=== PATIENT | female | born 1935 | race Caucasian/White ===

== ENCOUNTER 2023-12-06 17:35 | Inpatient (IN) | payer MEDICARE, OTHER ==
[~2023-12-06] VITALS: Ht 167.6 cm; Wt 58.5 kg
[2023-12-06] MEDS ORDERED: MAGNESIUM HYDROXIDE 30 ML UDC PO PRN (18:30)
[2023-12-06] MEDS ORDERED: ZOLPIDEM TARTRATE 5 MG TABLET PO PRN (18:30)
[2023-12-06] MEDS ORDERED: ACETAMINOPHEN 325 MG TABLET PO PRN (18:30)
[2023-12-06 18:34] VITALS: BP 128/61; TEMP 97.7; O2SAT 98
[2023-12-06 20:00] VITALS: BP 133/75; TEMP 97.9; O2SAT 97
[2023-12-06] MEDS: BLOOD SUGAR DIAGNOSTIC 1 EACH STRIP IN ONE (20:06)
[2023-12-07 07:47] LABS: ALANINE AMINOTRANSFERASE 6 U/L (12-78); ALBUMIN 3.3 g/dL (3.4-5.0); ALKALINE PHOSPHATASE 122 U/L (46-116); ASPARTATE AMINOTRANSFERASE 7 U/L (15-37); BILIRUBIN,TOTAL 0.5 mg/dL (0.2-1.0); CALCIUM, SERUM 10.2 mg/dL (8.5-10.1); CARBON DIOXIDE 24 mmol/L (21-32); CHLORIDE 105 mmol/L (98-107); CREATININE 0.7 mg/dL (0.6-1.3); GLUCOSE 91 mg/dL (74-106); POTASSIUM 4.3 mmol/L (3.5-5.1); SODIUM SERUM 139 mmol/L (136-145); TOTAL PROTEIN, SERUM 7.8 g/dL (6.4-8.2); UREA NITROGEN, BLOOD 18 mg/dL (7-18)
[2023-12-07 08:00] VITALS: BP 151/61; TEMP 97.7; O2SAT 99
[2023-12-07 08:32] LABS: CHOLESTEROL 164 mg/dL (<200); HDL CHOLESTEROL 62 mg/dL (40-60); LDL 85 mg/dL (0-99); TRIGLYCERIDES 79 mg/dL (30-150)
[2023-12-07] MEDS: ESCITALOPRAM OXALATE (10 MG) 10 MG TABLET PO SCH (11:50)
[2023-12-07 16:04] VITALS: BP 107/57; TEMP 97.8; O2SAT 94
[2023-12-07 21:19] VITALS: BP 115/58; TEMP 97.9; O2SAT 97
[2023-12-07] MEDS: QUETIAPINE FUMARATE 25 MG TABLET PO SCH (21:33)
[2023-12-08 08:00] VITALS: BP 132/74; TEMP 97.9; O2SAT 93
[2023-12-08 13:47] LABS: THYROID STIMULATING HORMONE 3.83 uIU/mL (0.358-3.74)
[2023-12-08 16:00] VITALS: BP 119/66; TEMP 98.1; O2SAT 96
[2023-12-08 20:52] VITALS: BP 119/65; TEMP 98.1; O2SAT 96
[2023-12-09 07:10] LABS: FOLIC ACID 6.8 ng/mL (>3.0)
[2023-12-09 08:00] VITALS: BP 114/64; TEMP 98.9; O2SAT 92
[2023-12-09] MEDS: LORAZEPAM 0.5 MG TABLET PO PRN (10:48)
[2023-12-09 16:00] VITALS: BP 165/78; TEMP 98.4; O2SAT 98
[2023-12-09 20:35] VITALS: BP 109/68; TEMP 98.2; O2SAT 91
[2023-12-10 08:00] VITALS: BP 112/65; TEMP 97.8; O2SAT 96
[2023-12-10] MEDS: CYANOCOBALAMIN 1,000 MCG/ML VIAL IM SCH (08:20)
[2023-12-10 16:00] VITALS: BP 124/76; TEMP 98.7; O2SAT 97
[2023-12-10 20:00] VITALS: BP 153/57; TEMP 98.4; O2SAT 99
[2023-12-10] MEDS: MAG HYDROX/AL HYDROX/SIMETH 30 ML UDC PO PRN (20:01)
[2023-12-11 08:00] VITALS: BP 126/75; TEMP 98.6; O2SAT 95
[2023-12-11 16:00] VITALS: BP 112/66; TEMP 98.6; O2SAT 100
[2023-12-11 20:00] VITALS: BP 109/68; TEMP 98.3; O2SAT 97
[2023-12-12 08:00] VITALS: BP 116/55; TEMP 98; O2SAT 93
[2023-12-12 16:00] VITALS: BP 124/70; TEMP 97.8; O2SAT 96
== END 2023-12-12 20:06 | disposition home or self-care (01) | DRG 885 ==
LOC: ER 17:53 → GPS 17:55
PROVIDERS: ADMIT Psychiatry & Neurology Psychiatry; ATTEND Nurse Practitioner Acute Care
DX: F33.3 Major depressive disorder, recurrent, severe with psychotic symptoms (principal); E44.1 Mild protein-calorie malnutrition; F03.93 Unspecified dementia, unspecified severity, with mood disturbance; F03.92 Unspecified dementia, unspecified severity, with psychotic disturbance; R45.851 Suicidal ideations; I10 Essential (primary) hypertension; F29 Unspecified psychosis not due to a substance or known physiological condition; E88.09 Other disorders of plasma-protein metabolism, not elsewhere classified; E83.52 Hypercalcemia; E03.8 Other specified hypothyroidism; K21.9 Gastro-esophageal reflux disease without esophagitis; Z73.6 Limitation of activities due to disability; Z68.20 Body mass index [BMI] 20.0-20.9, adult
CPT/HCPCS: 36415; 70450-TC; 80053-TC; 80061-TC; 82607-TC; 82962-TC; 83921; 84439-TC; 84443-TC; 87081-TC; J3420